=== PATIENT | male | born 1975 | race Caucasian/White ===

== ENCOUNTER 2020-03-30 18:12 | Emergency (ER) | payer OTHER ==
[~2020-03-30] VITALS: Ht 175.3 cm; Wt 102.3 kg
[2020-03-30] MEDS ORDERED: PERCOCET 325 MG1 TA2 PO ×2 (19:35)
[2020-03-30 19:51] VITALS: BP 123/72; PULSE 72; TEMP 98.2
[2020-03-31] MEDS ORDERED: PERCOCET 325 MG1 TA2 PO ×3 (14:05→15:04)
== END 2020-03-30 19:53 | disposition home or self-care (01) ==
LOC: COL.ER 18:12
DX: S43.101A Unspecified dislocation of right acromioclavicular joint, initial encounter (principal); V80.010A Animal-rider injured by fall from or being thrown from horse in noncollision accident, initial encounter; Y93.52 Activity, horseback riding; Y92.009 Unspecified place in unspecified non-institutional (private) residence as the place of occurrence of the external cause

== ENCOUNTER 2021-06-27 19:42 | Emergency (ER) | payer OTHER ==
[~2021-06-27] VITALS: Ht 172.7 cm; Wt 100.0 kg
[~2021-06-27 19:42] MED LIST changes: -ZOFRAN ODT4 MG PO
[2021-06-27 20:01] VITALS: TEMP 98.4
[2021-06-27] MEDS ORDERED: PERCOCET 325 MG1 TA2 PO (21:23)
[2021-06-27] MEDS ORDERED: ZOFRAN ODT4 MG PO (21:34)
[2021-06-27 21:55] VITALS: BP 128/85; PULSE 69
== END 2021-06-27 21:55 | disposition home or self-care (01) ==
LOC: COL.ER 19:42
DX: N20.0 Calculus of kidney (principal); I10 Essential (primary) hypertension
CPT/HCPCS: J2405; J3010

== ENCOUNTER → 2021-06-27 | Outpatient (CLI) | payer OTHER ==
[~2021-06-27] MED LIST: PERCOCET 325 MG1 TA2 PO; ZOFRAN ODT4 MG PO
== END ==
LOC: COL.RAD 13:22
DX: N20.0 Calculus of kidney (principal)